=== PATIENT | male | born 1950 | race Hispanic/Latino ===

== ENCOUNTER 2016-04-20 07:17 | Outpatient (CLI) | payer MEDICAID ==
[2016-04-20] MEDS ORDERED: NACL ONE (08:23)
--- NOTE | 2016-04-20 12:01 | Cat Scan Report ---
CT LUMBAR SPINE WITH AND WITHOUT CONTRAST: INDICATION: Lower back pain. COMPARISON: None similar. FINDINGS: Pre- and post contrast lumbar spine CT performed. Axial, sagittal and coronal CT reconstructions demonstrate age-appropriate, preserved vertebral body stature and alignment with multilevel degenerative changes, including spurring, greatest at L4-L5. Few endplate degenerative changes/Schmorl's nodes also noted. Non-aneurysmal abdominal aorta with few atherosclerotic calcifications. Normal paraspinal soft tissues. Conus medullaris appears to terminate about L1. No focal suspicious abnormal enhancement. On the obtained axial images: T12-L1, L1-L2, L3-L4 and L5-S1 appear unremarkable. L2-L3 demonstrates slight disc narrowing. AP thecal sac caliber at L3-L4 is 1.3 cm, axial series 3, image 99. L4-L5 demonstrates [id number] disc narrowing and diffuse disc bulge/osteophyte complex with spinal stenosis/thecal sac effacement. AP thecal sac caliber approximately 1 cm, axial image 126, series 3. Bilateral neural foraminal narrowing/exiting L4 nerve root compression possible. Right SI joint degenerative bridging also incidentally seen. CONCLUSION: Few lumbar degenerative changes noted, greatest at L4-L5 with mild spinal stenosis, as described. Please correlate. Thank you for the opportunity to participate in this patient's care.
== END 2016-04-20 07:18 | disposition home or self-care (01) ==
LOC: CT 07:17
PROVIDERS: ATTEND Internal Medicine
DX: M48.06 Spinal stenosis, lumbar region (principal); M47.896 Other spondylosis, lumbar region; M25.78 Osteophyte, vertebrae; I70.0 Atherosclerosis of aorta; M54.5 Low back pain
CPT/HCPCS: 36415; 72133; 82565; 84520; Q9967

== ENCOUNTER 2016-07-03 07:52 | Outpatient (CLI) | payer MEDICAID ==
[2016-07-03 08:20] LABS: Bilirubin,Urine NEG (Negative); Blood,Urine NEG (Negative); Ketones,Urine NEG (Negative); Leukocyte Esterase,Urine NEG (Negative); Nitrite,Urine NEG (Negative); Protein,Urine <15 mg/dL mg/dL (Negative); Urobilinogen,Urine < 2.0 mg/dL (<2.0); WBC,Urine < 1.0 /HPF (0.0-6.0)
[2016-07-03 08:34] LABS: Anion Gap 17 mmol/L; Blood Urea Nitrogen 11 mg/dL (9-20); Calcium 9.1 mg/dL (8.4-10.2); Carbon Dioxide 23 mmol/L (22-30); Chloride 100.5 mmol/L (98-107); Glucose 110 mg/dL (75-100); Phosphorous 3.6 mg/dL (2.5-4.5); Potassium 3.9 mmol/L (3.6-5.0); Sodium 137 mmol/L (137-145)
== END 2016-07-03 07:53 | disposition home or self-care (01) ==
LOC: LAB 07:52
PROVIDERS: ATTEND Internal Medicine Nephrology
DX: N18.3 Chronic kidney disease, stage 3 (moderate) (principal)
CPT/HCPCS: 36415; 80048; 81001; 83970; 84100